=== PATIENT | female | born 1980 | race Caucasian/White ===

== ENCOUNTER 2018-11-09 09:13 | Day surgery (SDC) | payer MEDICAID ==
--- NOTE | 2018-10-20 11:17 | GHP ---
DATE OF ADMISSION: 11/09/2018 ADMITTING DIAGNOSES: 1. Pelvic pain with Essure in place. HISTORY OF PRESENT ILLNESS: Patient is a 38-year-old, G8, P5-0-3-5 with last menstrual period 10/08/2018, who presents from primary care office with complaints of chronic pelvic pain. Patient noticed this pain since the placement of the Essure in 2011. She states pain is worse on the right than left. It is constant, on a daily basis, and feels dull, achy. At times, the pain can become sharp and she feels "a pinching sensation." There is no associated nausea or vomiting. She denies any GI or complaints. 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 She has minimal relief with pain medicine and is currently being worked up for fibromyalgia and other autoimmune disorders by her primary care physician. She has been working with physical therapist and notes minimal improvement in her pelvic pain. She is hoping with removing the Essure coils this will help improve her pain. PAST OBSTETRICAL HISTORY: In 1999 and 2003, she had missed AB. In 2000, 2004, 2007, 2009 and 2011 she had vaginal deliveries. GYNECOLOGIC HISTORY: Age of menarche 14. Cycles are regular and she bleeds for 5-6 days with heavy flow and painful cramps. Patient denies a history of any abnormal Pap smears or any exposure to STDs. CURRENT MEDICATIONS: Fish oil, vitamin D3, and other herbal supplements. ALLERGIES: Sensitivity to Vicodin, ibuprofen and multiple antibiotics in the past, but states she has tried these since and has had no issues. PAST MEDICAL HISTORY: Pelvic pain. PAST SURGICAL HISTORY: Essure in 2011. SOCIAL HISTORY: The patient is and lives with her and children. 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 She denies any alcohol, tobacco, or illicit drug use. FAMILY HISTORY: Mother and grandmother, migraine headaches. Father, alcoholism. Three aunts with thyroid disease. Mother, colon cancer. Maternal grandmother, ovarian and uterine cancer. REVIEW OF SYSTEMS: 10-point review of systems is negative. Pertinent positives noted in HPI. LABORATORY DATA: Hemoglobin 12.2 and hematocrit 37.3. STUDIES: Pelvic ultrasound revealed uterus 7 x 4 x 5 cm that is normal appearing without any distinct masses; endometrial stripe is 0.99 cm and homogenous; bilateral Essure are seen; bilateral ovaries are normal with no free fluid. ADMISSION PHYSICAL EXAMINATION: VITAL SIGNS: Stable. Patient is afebrile, well-nourished, well-developed female. Alert and oriented x3. No apparent distress. SKIN: Warm, dry without rash. NEURO: Grossly intact. CARDIOVASCULAR: Regular rate and rhythm. LUNGS: Clear to auscultation bilaterally. ABDOMEN: Soft, nondistended. Some mild tenderness to palpation in the lower abdomen, R greater than L. PELVIC: normal size, anteverted uterus that is mobile, nontender. No adnexal masses appreciated. EXTREMITIES: Normal to inspection without calf tenderness or edema. ASSESSMENT/PLAN: Patient is a 38-year-old, 8, para 5-0-3-5 with long history of pelvic pain since placement of Essure in 2011. 1. Discussed the procedure, laparoscopic salpingectomy with removal of both tubes as well as Essure coils. Discussed its limitations, [id number] status, and postoperative recovery period. The patient is aware that her pain may not resolve or even be approved after surgery and she still wants to proceed with surgery. 2. Surgical consents were obtained. Discussed risks, benefits, and alternatives, including, but not limited to, bleeding, infection, and damage to surrounding organs. The patient understands all risks of the surgery and wants to proceed. 3. Antibiotics transit operations supervisor to operating room. 4. Sequential compression devices for deep venous thrombosis prophylaxis. /[id number]/MODL MTDD
[2018-11-09] MEDS ORDERED: BUPIVACAINE 0.5% 30 ML SDV ONE (09:17)
[2018-11-09] MEDS ORDERED: ceFAZolin 2 GM/DEXTROSE 100 ML IV ONE (09:40)
[2018-11-09] MEDS ORDERED: LR 1,000 ML IV ONE (09:41)
[2018-11-09] MEDS ORDERED: MIDAZOLAM 2 MG/2 ML VIAL IVP ONE (10:00)
--- NOTE | 2018-11-09 10:00 | PDANEPAE ---
ANE History of Present Illness Essure device removal ANE Past Medical History - Cardiovascular History Hx Hypertension: No Hx Arrhythmias: No Hx Chest Pain: No Hx Coronary Artery / Peripheral Vascular Disease: No Hx CHF / Valvular Disease: No Hx Palpitations: No - Pulmonary History Hx COPD: No Hx Asthma/Reactive Airway Disease: No Hx Recent Upper Respiratory Infection: No Hx Oxygen in Use at Home: No Hx Sleep Apnea: No Sleep Apnea Screening Result - Last Documented: Negative - Neurologic History Hx Cerebrovascular Accident: No Hx Seizures: No Hx Dementia: No Neurologic History Comment: PAST MIGRAINES - Endocrine History Hx Diabetes: No - Renal History Hx Renal Disorders: No - Liver History Hx Hepatic Disorders: No - Neurological & Psychiatric Hx Hx Neurological and Psychiatric Disorders: No - Cancer History Hx Cancer: No - Congenital Disorder History Hx Congenital Disorders: No - GI History Hx Gastrointestinal Disorders: No - Other Health History Other Health History: NEG - Chronic Pain History Chronic Pain: Yes (ABD PAIN W/ESURE & BACK/NECK PAIN) - Surgical History Prior Surgeries: BREAST IMPLANTS. VIKA ANE Review of Systems Review of systems is: negative Review of Systems: - Exercise capacity METS (RN): 6 METS ANE Patient History - Allergies Allergies/Adverse Reactions: shellfish derived Allergy (Verified 11/09/18 09:49) - Home Medications Home medications: home medication list seen and reviewed Home Medications: Excedrin Tablet (*) 10/13/18 [Last Taken 11/02/18] Herbals/Supplements -Info Only 10/13/18 [Last Taken 11/02/18] Ibuprofen 10/13/18 [Last Taken 11/02/18] Tizanidine HCl 10/13/18 [Last Taken 11/09/18 07:30] - NPO status NPO Status: no food or drink >8 hours - Anes Hx Anes Hx: no prior problems - Smoking Hx Smoking Status: Former smoker - Family Anes Hx Family Anes Hx: none ANE Labs/Vital Signs - Vital Signs Height: 162.56 cm Weight: 58.06 kg ANE Physical Exam - Airway Neck exam: FROM Mallampati Score: Class 1 Mouth exam: normal dental/mouth exam - Pulmonary Pulmonary: no respiratory distress, no rales or rhonchi - Cardiovascular Cardiovascular: regular rate and rhythym, no murmur, rub, or gallop - ASA Status ASA Status: I ANE Anesthesia Plan Anesthesia Plan: general endotracheal anesthesia
[2018-11-09] MEDS ORDERED: fentaNYL 100 MCG/2 ML INJ ONE ×3 (10:03→13:24)
[2018-11-09] MEDS ORDERED: ROCURONIUM 50 MG/5 ML VIAL ONE (10:03)
[2018-11-09] MEDS ORDERED: LIDOCAINE 2% 5 ML SDV ONE (10:03)
[2018-11-09] MEDS ORDERED: PROPOFOL 200 MG/20 ML VIAL ONE (10:03)
--- NOTE | 2018-11-09 10:23 | PDHPUP ---
History & Physical Update H&P update statement: This history and physical update is based on an assessment of the patient which was completed after admission or registration (within 24 hours), but prior to the surgery/procedure. H&P update: H&P reviewed & patient examined, no change in patient's condition since H&P completed
[2018-11-09] MEDS ORDERED: DEXAMETHASONE 4 MG/ML VIAL ONE (10:51)
[2018-11-09] MEDS ORDERED: ONDANSETRON 4 MG/2 ML VIAL ONE (11:38)
[2018-11-09] MEDS ORDERED: KETOROLAC 30 MG/1 ML SDV ONE (11:40)
[2018-11-09] MEDS ORDERED: HYDROmorphONE/DILAUDID 2 MG/ML INJ IVP PRN (11:44)
[2018-11-09] MEDS ORDERED: PROMETHAZINE HCL 25 MG/ML INJ IVP PRN (11:44)
[2018-11-09] MEDS ORDERED: fentaNYL 100 MCG/2 ML INJ IVP PRN (11:44)
[2018-11-09] MEDS ORDERED: NALOXONE HCL 0.4 MG/ML INJ IVP PRN ×2 (11:44→14:46)
[2018-11-09] MEDS ORDERED: ONDANSETRON 4 MG/2 ML VIAL IVP PRN (11:44)
--- NOTE | 2018-11-09 11:58 | POSTOPPROG ---
Post Op Note Date of Operation: 11/09/18 Surgeon: China Paulson Quality Control Expert: ANETTE Saxena Anesthesiologist: Jose Fortune Anesthesia: GET(General Endotracheal) Pre-op Diagnosis: Pelvic pain, s/p Essure Post-op Diagnosis: Pelvic pain, s/p Essure Indication: 38 y/o with chronic pelvic pain, s/p Essure in 2011 Procedure: Laparocopic BS with removal of Essure coils Findings: Nml appearing uterus, b/l tubes and ovaries. Essure coils noted b/l tubes Inf/Abcess present in the surg proc area at time of surgery?: No Depth: Organ Space EBL: Minimal (2cc) Total fluids administered: 500 cc LR UO: 100 cc clear urine Complications: None Specimen(s): b/l tubes and Essure coils
--- NOTE | 2018-11-09 12:08 | POSTANESTH ---
Post Anesthetic Evaluation Cardiovascular Status: Similar to Pre-Op Cond Respiratory Status: Similar to Pre-op Cond. Level of Consciousness/Mental Status: Can Participate in Eval, Alert and Oriented Pain Control: Adequate, Prn Tx Ordered Nausea/Vomiting Control: Adequate, Prn Tx Ordered Complications Possibly Related to Anesthesia: None Noted
--- NOTE | 2018-11-09 14:00 | GOP ---
[f rep st] OPERATIVE REPORT DATE OF OPERATION: 11/09/2018 SURGEON: China Paulson DO HOME THERAPY CLINICIAN: ANETTE Encinas. ANESTHESIA: General endotracheal tube. ANESTHESIOLOGIST: Dr. Fortune. PREOPERATIVE DIAGNOSIS: 1. Pelvic pain. 2. Status post Essure placed in 2011. POSTOPERATIVE DIAGNOSIS: 1. Pelvic pain. 2. Status post Essure placed in 2011. PROCEDURE PERFORMED: Laparoscopic bilateral salpingectomy with removal of bilateral Essure devices. FINDINGS: Grossly normal-appearing uterus that sounded to 8 cm. Grossly normal appearing bilateral fallopian tubes and ovaries. Upper abdomen grossly normal appearing. Appendix was not visualized. SPECIMENS: Bilateral fallopian tubes with Essure devices. ESTIMATED BLOOD LOSS: Minimal, less than 2 cc. INDICATIONS: The patient is a 38-year-old 8, para 5-0-3-5 with chronic pelvic pain since placement of Essure in 2011. The patient has a nickel allergy and desires to have the Essure devices removed. Discussed the risks, benefits, and alternatives of the procedure including, but not limited to, bleeding, infection, and damage to surrounding organs. Patient understands all risks of surgery and wants to proceed with surgery at this time. Patient was properly consented. DESCRIPTION OF PROCEDURE: The patient was taken back to the operating room where general anesthesia was obtained without difficulty. Patient was then placed in dorsal lithotomy position, prepped and draped in the usual sterile fashion. The patient has an allergy to shellfish, so she was prepped with Hibiclens. Augustin catheter was placed at this time. After a WHO time-out was performed, an open-ended speculum was placed in the vagina. The cervix was visualized. The anterior lip of the cervix was grasped with an Allis clamp. The uterus was then sounded to 8 cm. At this time, an acorn manipulator was placed inside the cervix to act as a means to manipulate the uterus. Attention was turned to the abdomen where local, 0.5% plain Marcaine, was used for infiltration of the infraumbilical area. A 5 mm skin incision was then made in this area using a scalpel. A Veress needle was inserted uneventfully while tenting the abdominal wall. Opening pressure was less than 8 mmHg. Peritoneal cavity was then insufflated with CO2 gas to a maximum pressure of 20 mmHg. The Veress needle was then removed. A 5 mm trocar attached to a 0- degree laparoscope was thrn introduced without difficulty through this site directly into the peritoneal cavity. Pelvic organs were then visualized. After injecting more local, 5 mm skin incisions were then made on both the right and left side. Atraumatic trocars were then placed under direct visualization. The patient was placed in Trendelenburg and the uterus was upheld from below which revealed the findings noted above. Bilateral fallopian tubes looked normal with no abnormal perforation of the tube on either side or any evidence of any trauma from the devices. At this time, the right fimbria was identified, and grasped with atraumatic trocar. Using LigaSure, the right tube was resected along the mesosalpinx all the way to the cornual insertion. The fallopian tube was then completely transected. The Essure device was identified in the cornual stump and grasped with the [place]'s and was removed. First removing the tip of the device, then the wire coil, and finally the fiber portion of the device, completely accounting for the entire device with no fragments remaining behind. A similar procedure was done on the left side without difficulty. The remainder of the cornual stumps of the bilateral tubes were excised using the LigaSure. Hemostasis was noted. Then all ports and trocars were removed from the abdomen. All gas was allowed to escape from the abdomen. Skin incisions were cleaned and then closed with Dermabond. All instruments were removed from the vagina. Hemostasis was noted. Augustin catheter was removed as well with clear urine noted. The patient tolerated the procedure well. There were no complications. Sponge, lap, needle , and instrument counts were correct x2. The patient was then taken out of dorsal lithotomy position, awakened, and taken to the room in stable condition. IV FLUIDS: 500 cc LR. URINE OUTPUT: 100 cc of clear urine at the end of the procedure. /[id number]/MODL MTDD
[2018-11-09 14:41] VITALS: BP 101/66
[2018-11-09] MEDS ORDERED: HYDROCODONE/APAP 5/325 TAB PO PRN (14:46)
== END 2018-11-09 16:10 | disposition home or self-care (01) ==
LOC: FSGY 09:13
PROVIDERS: ATTEND Obstetrics & Gynecology
DX: T83.84XA Pain due to genitourinary prosthetic devices, implants and grafts, initial encounter (principal); Z30.8 Encounter for other contraceptive management; R10.2 Pelvic and perineal pain; Y76.2 Prosthetic and other implants, materials and accessory obstetric and gynecological devices associated with adverse incidents; Z91.048 Other nonmedicinal substance allergy status; Z91.013 Allergy to seafood
CPT/HCPCS: J0690; J1100; J1885; J2250; J2405; J2704; J3010